=== PATIENT | male | born 1955 | race American Indian/Alaskan Native ===

== ENCOUNTER 2020-08-01 20:14 | Emergency (ER) | payer OTHER ==
[2020-08-01] MEDS ORDERED: DIPHtheria,PERTUSSIS(ACELL),TETANUS VACCINE/PF 0.5 ML VIAL IM ONE (22:21)
--- NOTE | 2020-08-01 22:21 | Event Note ---
ED Screening Note ED Screening Note: bite by his neighbors dog to the left middle finger unsure last tetanus This initial assessment/diagnostic orders/clinical plan/treatment(s) is/are subject to change based on patients health status, clinical progression and re- assessment by fellow clinical providers in the ED. Further treatment and workup at subsequent clinical providers discretion. Patient/guardian urged not to elope from the ED as their condition may be serious if not clinically assessed and managed. Initial orders include: tdap XR left hand
--- NOTE | 2020-08-01 22:48 | XRay Report ---
RIGHT HAND 3 VIEWS INDICATION / CLINICAL INFORMATION: dog bite right middle finger. COMPARISON: None available. FINDINGS: BONES/JOINT(S): No acute fracture or subluxation. No significant degenerative changes. SOFT TISSUES: No radiopaque foreign body or soft tissue gas. ADDITIONAL FINDINGS: None. Signer Name: Johnny Garcia MD Signed: 08/01/2020 10:44 PM Workstation Name: [id number]
--- NOTE | 2020-08-02 01:20 | Emergency Department Report ---
ED Animal Bite HPI - General Chief Complaint: Animal Bite Stated Complaint: DOG BITE Time Seen by Provider: 08/01/20 22:18 Source: patient Mode of arrival: Ambulatory Limitations: No Limitations - History of Present Illness Initial Comments: The patient was evaluated in the emergency department for symptoms described in the history of present illness. He/she was evaluated in the context of the global COVID-19 pandemic, which necessitated consideration that the patient might be at risk for infection with the virus that causes COVID-19. Institutional protocols and algorithms that pertain to the evaluation of patients at risk for COVID-19 are in a state of rapid change based on information released by regulatory bodies including the CDC and federal and state organizations. These policies and algorithms were followed during the patient's care in the emergency department. Please note that these policies, procedures and recommendations changed on a rapid basis. 64-year-old -[place] male presents to the emergency room for dog bite to the third digit on the right hand by neighbor's dog. Patient reports that the dog is up-to-date in all vaccines. Patient has an allergy to codeine. MD Complaint: animal bite -: This evening Right: Hand (Third digit) Animal: dog Animal Control Notified: No Description: household pet, immunizations UTD Severity scale (0 -10): 5 Context: unprovoked Associated Symptoms: bleeding (Controlled) Treatments Prior to Arrival: wound dressing(s) - Related Data Patient Tetanus UTD: No Previous Rx's Medication Instructions Recorded Last Taken Type Amoxicillin/K Clav Tab [Augmentin 1 tab PO Q12HR 7 Days #14 tab 08/02/20 Unknown Rx 875 mg] Allergies Allergy/AdvReac Type Severity Reaction Status Date / Time oxycodone Allergy Unknown Verified 08/01/20 22:16 ED Review of Systems ROS: Stated complaint: DOG BITE Other details as noted in HPI Comment: All other systems reviewed and negative Constitutional: denies: chills, fever Eyes: denies: eye pain, eye discharge, vision change ED Past Medical Hx - Social History Smoking Status: Never Smoker Substance Use Type: None - Medications Home Medications: Home Medications Medication Instructions Recorded Confirmed Last Taken Type Amoxicillin/K Clav Tab [Augmentin 1 tab PO Q12HR 7 Days #14 tab 08/02/20 Unknown Rx 875 mg] ED Physical Exam - General Limitations: No Limitations General appearance: alert, in no apparent distress - Head Head exam: Present: atraumatic, normocephalic - Eye Eye exam: Present: normal appearance - ENT ENT exam: Present: mucous membranes moist - Neck Neck exam: Present: normal inspection, full ROM - Respiratory Respiratory exam: Absent: accessory muscle use - Neurological Exam Neurological exam: Present: alert, oriented X3 - Psychiatric Psychiatric exam: Present: normal affect, normal mood - Expanded Skin Exam Expanded Type of lesion: Present: laceration (1 cm), bite/sting (Right third digit) Description of rash: Present: tenderness, erythematous, swelling Critical care attestation.: If time is entered above; I have spent that time in minutes in the direct care of this critically ill patient, excluding procedure time. ED Disposition Clinical Impression: Dog bite Qualifiers: Encounter type: initial encounter Qualified Code(s): W54.0XXA - Bitten by dog, initial encounter Disposition: - TO HOME OR SELFCARE Is pt being admited?: No Does the pt Need Aspirin: No Condition: Stable Instructions: Animal Bite, Adult, [id number] Additional Instructions: Complete antibiotics as prescribed. Take pain medication like ibuprofen or Tylenol. Keep wound clean and dry with the bandage on. Follow-up with your primary care provider if you have any further concerns. Prescriptions: Amoxicillin/K Clav Tab [Augmentin 875 mg] 1 tab PO Q12HR 7 Days #14 tab Referrals: KAVYA WHITE MD [Staff Physician] - 3-5 Days Forms: Work/School Release Form(ED) ED Medical Decision Making - Radiology Data Radiology results: report reviewed Referring Physician:SANCHEZ SUHPatient Name:ROSITA BRYANTPatient ID:[id number] of :[id number]:MaleAccession:[id number] Date:[id number] Status:Finalized Findings [facility] [address] [place] [address] XRay Report Signed Patient: ROSITA BRYANT MR#: [id number] : 1955 Acct:[id number] Age/Sex: 64 / M ADM Date: 08/01/20 Loc: ED Attending Dr: Ordering Physician: ZAFAR COONEY Date of Service: 08/01/20 Procedure(s): XR hand 3+V RT Accession Number(s): [id number] cc: ZAFAR COONEY Fluoro Time In Minutes: RIGHT HAND 3 VIEWS INDICATION / CLINICAL INFORMATION: dog bite right middle finger. COMPARISON: None available. FINDINGS: BONES/JOINT(S): No acute fracture or subluxation. No significant degenerative changes. SOFT TISSUES: No radiopaque foreign body or soft tissue gas. ADDITIONAL FINDINGS: None. Signer Name: Johnny Garcia MD Signed: 08/01/2020 10:44 PM Workstation Name: [id number] Transcribed By: DINAH Dictated By: Johnny Garcia MD Electronically Authenticated By: Johnny Garcia MD Signed Date/Time: 08/01/20 7637 - Medical Decision Making 64-year-old -[place] male presents to the emergency room for dog bite to the third digit on the right hand by neighbor's dog. Patient reports that the dog is up-to-date in all vaccines. Patient has an allergy to codeine. Patient will be given tetanus. Patient's hand is soaking with iodine water solution. Patient be discharged home on Augmentin 875 twice a day for 7 days. Patient can take ibuprofen or Tylenol for pain management.
[2020-08-02] MEDS ORDERED: IBUPROFEN 600 MG TAB PO ONE (01:26)
[2020-08-02] MEDS ORDERED: DIPHtheria,PERTUSSIS(ACELL),TETANUS VACCINE/PF 0.5 ML VIAL IM ONE (01:40)
[2020-08-02 02:04] VITALS: BP 140/83
== END 2020-08-02 01:45 | disposition home or self-care (01) ==
LOC: ED 20:14
DX: S61.252A Open bite of right middle finger without damage to nail, initial encounter (principal); Z79.2 Long term (current) use of antibiotics; Z88.8 Allergy status to other drugs, medicaments and biological substances; W54.0XXA Bitten by dog, initial encounter; Y93.89 Activity, other specified; Y92.89 Other specified places as the place of occurrence of the external cause; Y99.8 Other external cause status
CPT/HCPCS: 90471; 90715